=== PATIENT | male | born 1960 | race Caucasian/White ===

== ENCOUNTER 2017-08-06 20:00 | Emergency (ER) | payer BC ==
[~2017-08-06] VITALS: Ht 182.9 cm; Wt 113.4 kg
[2017-08-06 20:00] VITALS: BP 0/0
[~2017-08-06 20:00] MED LIST: EPINEPHrine SYRINGE 1 MG/10 ML SYRINGE ONE; SODIUM BICARB ADULT 8.4% 50 MEQ/50 ML DISP.SYRIN. ONE
--- NOTE | 2017-08-06 23:39 | PHYS DOC ---
General Chief Complaint: RESP ARREST Stated Complaint: RONNY PENA Time Seen by MD: 19:57 Source: other (friend) Exam Limitations: clinical condition Problems: History of Present Illness Initial Comments 56 year old male brought to ED by friend Ronny Pena Patient's friend entered ED waiting room requesting assistance, he and staff carried patient in from car to nearest cart, he was pulseless/apneic/ unresponsive and head/neck discolored blue. Pupils fixed, bladder incontinence noted and CPR initiated, good femoral pulses with compressions. Patient wheeled to trauma bay with compressions and placed on monitor, BVM ventilation momentarily and 4.0 LMA placed by RT. Good bilateral ventilation, ACLS protocol initiated. reports the patient was passenger in his vehicle when he suddenly stopped responding "I just heard some gurgling." Says the patient went limp and he couldn't get him to respond "about 10 minutes ago" so he brought him to the ED. Patient taken initially to room 2 to which I was called and I met patient's friend/staff carrying patient to room, immediately upon arriving pupils were fixed and dilated patient was pulseless and blue. CPR initiated, staff coordinated to transfer him to trauma room. Placed on the monitor, IO/IV access obtained, LMA airway with good ventilation bilaterally. ACLS protocol followed, see Ronny Pena report. Friend who brought patient in to ED states that the patient was passenger in his vehicle and apparently asymptomatic when he suddenly stopped talking and friend noticed he'd fallen limp. When he couldn't rouse the patient he brought him straight to the ED, he estimated time from unresponsive to ED arrival " about 10 minutes." Patient is retired [employer], he was carrying pistol with ankle holster which security removed and held. Timing/Duration: other ("about 10 minutes") Associated Symptoms: other Allergies: Coded Allergies: Unable to Assess (Unverified , 08/06/17) ronny pena Past Medical History Medical History: other (recent "flu-like symptoms" chronic sinusitis) Surgical History: other (unknown) Social History Smoker: other (unknown) Alcohol: other (unknown) Drugs: other (unknown) Review of Systems All Other Systems: Reviewed and Negative (ROS unobtainable) Physical Exam General Appearance: other (cardiopulmonary arrest, blue, no obvious evidence of trauma) Eyes: bilateral eye other (fixed/dilated) Ear, Nose, Throat: other (no discharge from ears/nose, no FB occluding airway) Neck: full range of motion (trachea midline), supple Respiratory: respiratory distress, other (no spontaneous respiratory effort or sounds) Cardiovascular: other (no pulse or spontaneous cardiac sounds to auscultation) Gastrointestinal: other (nondistended) Neurologic/Psychiatric: other (no response to pain or spontaneous movement) Skin: cyanosis, mottled Orders, Labs, Meds Patient time in arrest at least 34 minutes, general skin mottling and no reversible causes for arrest identified. See code record for specific details, no family available. Efforts discontinued at 2020 patient remained apneic without pulse, fixed/dilated pronounced . Discussed events with available family and questions answered. Departure Disposition: 20 Diagnosis: Cardiac Arrest Condition: Critical Care Note Total Time (mins): 20 Comments BAILEY Youngblood DO Aug 06, 2017 23:39
[2017-08-07] MEDS ORDERED: EPINEPHrine 1 MG/ML AMPUL IM ONE (07:15)
[2017-08-07] MEDS ORDERED: ATROPINE 0.5 MG/5 ML DISP.SYRIN. IV ONE (07:15)
== END 2017-08-06 22:42 | disposition expired ==
LOC: EDBD 20:00 → ER 20:00
DX: I46.9 Cardiac arrest, cause unspecified (principal)
CPT/HCPCS: 31500; 92950; 96374; 99285; J0461; J0171